=== PATIENT | female | born 1990 | race Caucasian/White ===

== ENCOUNTER 2022-12-18 07:09 | Outpatient (CLI) | payer OTHER, SELFPAY ==
--- NOTE | ~2022-12-18 | MR_ITS ---
MRI of the right knee Clinical history: Pain Technique: Coronal proton density and proton density-weighted images, sagittal proton-density and T2 fat-sat images, and axial proton-density fat-saturated images were acquired. Findings: There is tear of the ACL proximally. Posterior cruciate ligament is intact. Medial collater al ligament and the lateral collateral ligament complex are intact. Popliteus tendon is intact. Medial and lateral menisci are intact, without evidence of tear. Marrow edema at the central aspect of the lateral femoral condyle and at the posterolateral tibial pl ateau is consistent with sequelae of transchondral impaction injuries due to recent pivot shift injur y. There is additional bone contusion at the posterior medial tibial plateau. Extensor mechanism is intact. Small joint effusion present. No Goodwin's cyst. Impression: Complete tear of the proximal ACL. No meniscal tear. Transchondral impaction injuries the posterolateral tibial plateau and central aspect of the lateral femoral condyle. Additional bone contusion at the posterior medial tibial plateau. Reviewed, dictated and finalized at location . Impression: Complete tear of the proximal ACL. No meniscal tear. Transchondral impaction injuries the posterolateral tibial plateau and central aspect of the lateral femoral condyle. Additional bone contusion at the posteri or medial tibial plateau.
== END 2022-12-18 07:10 | disposition home or self-care (01) ==
PROVIDERS: Visit Provider Orthopaedic Surgery
DX: S83.511A Sprain of anterior cruciate ligament of right knee, initial encounter (principal); X58.XXXA Exposure to other specified factors, initial encounter
CPT/HCPCS: 73721